=== PATIENT | male | born 1995 | race Caucasian/White ===

== ENCOUNTER 2018-01-08 13:14 | Emergency (ER) | payer OTHER ==
[2018-01-08 13:23] VITALS: RESP 16; TEMP 98.2
--- NOTE | 2018-01-08 14:59 | EDPHY ---
H & P Smoking Status: Never smoked Time Seen by Provider: 01/08/18 14:08 HPI/ROS: CHIEF COMPLAINT: Dog bite right thigh HISTORY OF PRESENT ILLNESS: 22-year-old immunocompetent male complaining of dog bite to his right anterior distal thigh after is friend's dog bit this area shortly prior to arrival. The patient has an out-of-date tetanus. He is able to bear weight. No foreign body sensation. The dog has up-to-date vaccinations. PHYSICAL EXAM (Prior to examination, patient consented to physical exam, hands were washed and my usual and customary physical exam procedures followed) 1) GENERAL: Well-developed, well-nourished, alert and oriented. Appears to be in no acute distress. 2) HEAD: Normocephalic 3) HEENT: sclera anicteric 4) LUNGS: Breathing comfortably. 5) SKIN: The right anterior distal thigh the patient has a 1 cm x 2 cm superficial abrasion and bite with no signs of infection. 6) MUSCULOSKELETAL: Soft compartments. (Roselyn Villela) Constitutional: Initial Vital Signs Temperature (C) 36.8 C 01/08/18 13:19 Heart Rate 65 01/08/18 13:19 Respiratory Rate 16 01/08/18 13:19 Blood Pressure 118/109 H 01/08/18 13:19 O2 Sat (%) 95 01/08/18 13:19 O2 Delivery Mode Room Air Allergies/Adverse Reactions: No Known Allergies Allergy (Unverified 01/08/18 13:18) Home Medications: Medication Instructions Recorded AL 01/08/18 MDM/Departure - MDM Medications Given: Discontinued Medications Diphtheria/Tetanus/Acell Pertussis (Boostrix) 0.5 ml IM .ONCE ONE Stop: 01/08/18 15:03 Last Admin: 01/08/18 15:07 Dose: 0.5 ml ED Course/Re-evaluation: Patient's wound has been cleansed, his tetanus has been updated, started on prophylactic antibiotic Augmentin. Usual and customary wound precautions instructions provided. Care of patient under supervision of secondary supervising physician Dr Will . (Roselyn Villela) The patient was evaluated and managed by the physician molding line assistant. I have reviewed this chart and I agree with the findings and plan of care as documented , as indicated by my signature. I am the secondary supervising physician. ( Shama Will) - Depart Disposition: Home, Routine, Self-Care Clinical Impression: Dog bite of right thigh Qualifiers: Encounter type: initial encounter Qualified Code(s): S71.151A - Open bite, right thigh, initial encounter Condition: Good Instructions: Animal Bite (ED) Additional Instructions: Return to the ER if you develop redness, swelling, discharge, warmth to the wound, red streaks going up your leg, or any other symptoms that concern you. Referrals: [facility],. [Clinic] - 2-3 days, call for appt.
[2018-01-08] MEDS ORDERED: TDAP ADULT 0.5 ML INJ (BOOSTRIX) IM ONE (15:02)
[2018-01-08 15:19] VITALS: BP 115/71; PULSE 62; O2SAT 96
== END 2018-01-08 15:19 | disposition home or self-care (01) ==
DX: S71.151A Open bite, right thigh, initial encounter (principal); Z23 Encounter for immunization; W54.0XXA Bitten by dog, initial encounter